=== PATIENT | male | born 1985 | race Hispanic/Latino ===

== ENCOUNTER 2017-04-09 17:43 | Emergency (ER) | payer SELFPAY ==
--- NOTE | 2017-04-09 18:40 | RAD ---
LEFT FOOT THREE VIEWS 04/09/17 HISTORY: Left foot injury. COMPARISON: 05/07/16. FINDINGS: Lisfranc joint alignment is anatomic. Pes planus is evident on the lateral view. No acute fracture, d islocation, or aggressive erosions. IMPRESSION: Pes planus. No acute osseous abnormalities are demonstrated. POS: [facility]
[2017-04-09] MEDS ORDERED: Ketorolac Tromethamine 30 MG/ML VIAL ONE (18:45)
== END 2017-04-09 19:07 | disposition home or self-care (01) ==
LOC: SCSER 17:43
DX: S93.602A Unspecified sprain of left foot, initial encounter (principal); F41.9 Anxiety disorder, unspecified; F32.9 Major depressive disorder, single episode, unspecified; F43.10 Post-traumatic stress disorder, unspecified; X50.1XXA Overexertion from prolonged static or awkward postures, initial encounter; Y93.02 Activity, running
CPT/HCPCS: 96372; J1885

== ENCOUNTER 2017-09-08 16:48 | Emergency (ER) | payer OTHER, SELFPAY ==
--- NOTE | 2017-09-08 18:55 | RAD ---
RIGHT WRIST RADIOGRAPHS THREE VIEWS: 09/08/2017 PROVIDED CLINICAL HISTORY: Right wrist pain. FINDINGS: There is no evidence for fracture or other acute osseous abnormality. If there is persistent clinica l concern, conservative management and follow-up imaging are advised. IMPRESSION: As above. POS: [facility]
== END 2017-09-08 18:11 | disposition home or self-care (01) ==
LOC: SCSER 16:48
DX: M25.531 Pain in right wrist (principal); M25.561 Pain in right knee; F41.9 Anxiety disorder, unspecified; F32.9 Major depressive disorder, single episode, unspecified; F43.10 Post-traumatic stress disorder, unspecified; W22.8XXA Striking against or struck by other objects, initial encounter

== ENCOUNTER 2018-04-15 22:12 | Emergency (ER) | payer OTHER ==
[2018-04-15] MEDS ORDERED: Metoclopramide HCl 10 MG/2 ML VIAL ONE (22:38)
[2018-04-15] MEDS ORDERED: diphenhydrAMINE 50 MG/ML VIAL ONE (22:38)
[2018-04-15] MEDS ORDERED: methylPREDNISolone Sod Succ/PF 125 MG/2 ML VIAL ONE (22:38)
[2018-04-15] MEDS ORDERED: Ketorolac Tromethamine 30 MG/ML VIAL ONE (22:38)
[2018-04-15] MEDS ORDERED: Water For Inject, Bacteriostat 30 ML ONE (22:40)
[2018-04-15 22:54] LABS: #Basophils 0.1 thou/uL (0.0-0.2); #Eosinphils 0.4 thou/uL (0.0-0.7); #Lymphocytes 2.5 thou/uL (1.20-3.40); #Monocytes 0.5 thou/uL (0.11-0.59); #Neutrophils 5.4 thou/uL (1.40-6.50); %Basophils 0.8 % (0.0-1.0); %Lymphocytes 28.4 % (21.0-51.0); %Monocytes 5.8 % (0.0-10.0); Hemoglobin 16.4 g/dL (14.0-18.0); Mean Corpuscular HGB CONC 34.3 g/dL (32.0-36.0); Mean Corpuscular Hemoglobin 30.2 pg (27.0-31.0); Mean Platelet Volume 7.7 fL (7.4-10.4); Platelet Count 227 thou/uL (130-400); RBC Distribution Width 11.5 % (11.5-14.5); Red Blood Cell (RBC) Count 5.42 mill/uL (4.70-6.10); White Blood Cell (WBC) Count 8.9 thou/uL (4.8-10.8)
[2018-04-15 23:09] LABS: ALT (SGPT) 25 U/L (8-55); AST (SGOT) 33 U/L (5-34); Albumin 4.3 g/dL (3.5-5.0); Alkaline Phosphatase 50 U/L (40-150); Anion Gap 14 mmol/L (10-20); BUN (Urea Nitrogen) 12 mg/dL (8.9-20.6); Bilirubin, Total 0.7 mg/dL (0.2-1.2); Calc. Creatinine Clearance 0 mL/min (70-130); Calcium 9.6 mg/dL (7.8-10.44); Carbon Dioxide 24 mmol/L (22-29); Chloride 107 mmol/L (98-107); Estimated GFR-MDRD Greater than 90; Globulin 2.7 g/dL (2.4-3.5); Glucose 105 mg/dL (70-105); Potassium 3.5 mmol/L (3.5-5.1); Sodium 141 mmol/L (136-145)
== END 2018-04-15 23:43 | disposition home or self-care (01) ==
LOC: SCSER 22:12
DX: R51 Headache (principal); R55 Syncope and collapse; F41.9 Anxiety disorder, unspecified; F32.9 Major depressive disorder, single episode, unspecified; F43.10 Post-traumatic stress disorder, unspecified
CPT/HCPCS: 80053; 85025; 96365; 96375; J1200; J1885; J2765; J2930

== ENCOUNTER 2018-10-13 19:44 | Emergency (ER) | payer OTHER, SELFPAY ==
[2018-10-13 20:15] LABS: Hemoglobin 16.2 g/dL (14.0-18.0); Mean Corpuscular HGB CONC 34.4 g/dL (32.0-36.0); Mean Corpuscular Hemoglobin 30.1 pg (27.0-31.0); Mean Corpuscular Volume 87.5 fL (78.0-98.0); Mean Platelet Volume 9.8 fL (7.4-10.4); Platelet Count 229 thou/uL (130-400); RBC Distribution Width 11.8 % (11.5-14.5); Red Blood Cell (RBC) Count 5.36 mill/uL (4.70-6.10); White Blood Cell (WBC) Count 7.7 thou/uL (4.8-10.8)
[2018-10-13 20:26] LABS: Eosinophils 7 % (0-10); Lymphocytes 13 % (21-51); MDiff Complete? YES; Monocytes 1 % (0-10); Neutrophil 79 % (42-75); Platelet Morphology Comment Appears Adequate
[2018-10-13 20:29] LABS: Bilirubin Negative (Negative); Blood, Urine Negative (Negative); Clarity Clear (Clear); Glucose, Urine (Dipstick) Negative (Negative); Leukocyte Negative (Negative); Nitrite Negative (Negative); Protein, Urine (Dipstick) Negative (Neg-Trace); Urobilinogen 0.2 mg/dL (Less than 2)
[2018-10-13 20:37] LABS: ALT (SGPT) 28 U/L (8-55); AST (SGOT) 32 U/L (5-34); Albumin 4.1 g/dL (3.5-5.0); Alkaline Phosphatase 60 U/L (40-150); Anion Gap 15 mmol/L (10-20); BUN (Urea Nitrogen) 10 mg/dL (8.9-20.6); Bilirubin, Total 0.3 mg/dL (0.2-1.2); Calc. Creatinine Clearance 0 mL/min (70-130); Calcium 9.3 mg/dL (7.8-10.44); Carbon Dioxide 22 mmol/L (22-29); Chloride 108 mmol/L (98-107); Estimated GFR-MDRD Greater than 90; Glucose 101 mg/dL (70-105); Potassium 4.4 mmol/L (3.5-5.1); Protein, Total 7.1 g/dL (6.0-8.3); Sodium 141 mmol/L (136-145)
[2018-10-13] MEDS ORDERED: Ketorolac Tromethamine 30 MG/ML VIAL ONE (20:44)
== END 2018-10-13 21:03 | disposition home or self-care (01) ==
LOC: SCSER 19:44
DX: B34.9 Viral infection, unspecified (principal); F41.9 Anxiety disorder, unspecified; F43.10 Post-traumatic stress disorder, unspecified; F32.9 Major depressive disorder, single episode, unspecified
CPT/HCPCS: 80053; 81003; 83690; 85025; 87081; 87430; 87804; 96361; 96374; J1885

== ENCOUNTER 2022-06-03 04:34 | Emergency (ER) | payer OTHER ==
[2022-06-03 09:56] LABS: SARS-CoV-2 NAA Rapid Test Not Detected (NotDetected)
== END 2022-06-03 09:25 | disposition home or self-care (01) ==
LOC: ERS 04:34
DX: J01.90 Acute sinusitis, unspecified (principal); Z20.822 Contact with and (suspected) exposure to COVID-19
CPT/HCPCS: 87081; 87430; 99283